=== PATIENT | female | born 2000 | race Hispanic/Latino ===

== ENCOUNTER 2022-05-07 10:11 | Emergency (ER) | payer OTHER ==
--- OUTSIDE RECORDS SUMMARY | 2022-05-07 10:14 | XMS REPORT | Continuity of Care Document ---
:2000 Author Organization [facility] t Address [address] [place] [address] Care Team Providers Name Role Phone Sigrid Lynn Primary Care Physician Sigrid GARZA Attending Clinician Unavailable Sigrid Lynn Attending Clinician Visit, Nurse Attending Clinician Unavailable Payers Payer Name Policy Type Policy Number Effective Date Expiration Date S henny [place] [employer] [id number] 2022 HEALTH 00:00:00 [place] [id number] 2022 2022 00:00:00 00:00:00 Problems Condition Condition Condition Status Onset Resolution Last Treating Co mments Source Name Details Category Date Date Treatment Clinician Date Supervisio Supervisio Disease Active U nivers n of high n of high 6-24 ity of risk risk 00:00: [place] 00 Medi edilia in first in first Branch trimester trimester Primigravi Primigravi Disease Active U nivers da in da in 6-24 ity of first first 00:00: [place] trimester trimester 00 Medi edilia Branch Cough Cough Disease Active Univers 6-24 ity of 00:00: [place] 00 Medical Branch BMI BMI Disease Active Univers 25.0-25.9, 25.0-25.9, 6-24 it y of adult adult 00:00: [address] Allergies, Adverse Reactions, Alerts Allergy Allergy Status Severity Reaction(s) Onset Inactive Treating Comm ents Source Name Type Date Date Clinician NO KNOWN Drug Active Univers ALLERGIE Class ity of S [facility] Social History Social Habit Start Date Stop Date Quantity Comments Source ASSERTION 2022-03-08 [facility] 00:00:00 [facility] Exposure to 2022-04-24 2022-05-04 Not sure [facility]-CoV-2 00:00:00 09:05:00 [facility]ly [facility] (event) [place] Tobacco use and 2022-05-04 2022-05-04 Smokeless tobacco Un iversity of exposure 00:00:00 00:00:00 non-user [facility] Alcohol intake 2022-05-04 2022-05-04 Ex-drinker [facility] 00:00:00 00:00:00 (finding) [facility] Sex Assigned At [birth year] Universit y of 00:00:00 00:00:00 [facility] Smoking Status Start Date Stop Date Source Never smoked tobacco [facility] Medications Ordered Filled Start Stop Current Ordering Indication Dosage Frequency Signature Comments Components Source Medication Medication Date Date Medication? Clinician (SIG) Name Name Yes [id number] 1{packe Take 1 Univers vit 7-21 t} Packet by ity of 33-iron[place]fol [place]-dha 00 the Medical (SELECT-OB morning. Branc h + DHA) 29 mg iron-1 mg -250 mg combo pack Blood-Gluco Yes [id number] Use as Univers se Meter 6-30 directed ity of (FREESTYLE 00:00: [place] FREEDOM 00 Medical LITE) Kit Branch blood sugar Yes [id number] Use as Univers diagnostic 6-30 directed ity o f (FREESTYLE 00:00: [place] LITE 00 Medical STRIPS) Branch strip lancets 17 Yes [id number] Use as U nivers gauge Misc 6-30 directed ity o f 00:00: [place] 00 [facility] Branch Blood-Gluco Yes [id number] Use as Univers se Meter 6-30 directed ity of (FREESTYLE 00:00: [place] FREEDOM 00 Medical LITE) Kit Branch blood sugar Yes [id number] Use as Univers diagnostic 6-30 directed ity o f (FREESTYLE 00:00: [place] LITE 00 Medical STRIPS) Branch strip lancets 17 0 Yes [id number] Use as U nivers gauge Misc 6-30 directed ity o f 00:00: [place] 00 Medical Branch Blood-Gluco Yes [id number] Use as Univers se Meter 6-30 directed ity of (FREESTYLE 00:00: [place] FREEDOM 00 Medical LITE) Kit Branch blood sugar Yes [id number] Use as Univers diagnostic 6-30 directed ity o f (FREESTYLE 00:00: [place] LITE 00 Medical STRIPS) Branch strip lancets 17 Yes [id number] Use as U nivers gauge Misc 6-30 directed ity o f 00:00: [place] 00 Medical [place] Vital Signs Vital Name Observation Time Observation Value Comments Source Systolic blood 2022-05-04 14:05:00 113 mm[Hg] [facility]iver [email or web address] Diastolic blood 2022-05-04 14:05:00 60 mm[Hg] Unive rsity of [facility] [[email or web address] Heart rate 2022-05-04 14:05:00 59 /min [facility] Body temperature 2022-05-04 14:05:00 36.28 [facility] Respiratory rate 2022-05-04 14:05:00 18 /[facility] Body height 2022-05-04 14:05:00 154.9 cm [facility] Body weight 2022-05-04 14:05:00 55.537 kg [facility] BMI 2022-05-04 14:05:00 23.13 kg/m2 [facility] Systolic blood 2022-04-19 14:39:00 111 mm[Hg] Univer sity of [email or web address] Diastolic blood 2022-04-19 14:39:00 69 mm[Hg] Unive rsity of [email or web address] Heart rate 2022-04-19 14:39:00 59 /min [facility] Body temperature 2022-04-19 14:39:00 36.89 [facility] Respiratory rate 2022-04-19 14:39:00 18 /min [facility] Body weight 2022-04-19 14:39:00 [facility]74 [facility] Procedures Procedure Date / Time Performed Performing Clinician Sourc e POCT URINALYSIS 2022-05-04 14:06:00 Sae Garza [facility] Encounters Start End Encounter Admission Attending Care Care Encounter Source Date/Time Date/Time Type Type Clinicians Facility Department ID 2022-05-17 2022-05-17 Outpatient Sigrid GARZA [facility] [id number] Univers 14:30:00 14:30:00 SAE [id number] nathan o [facility] 2022-05-17 2022-05-17 Outpatient Sigrid GARZA [facility] [id number] Univers 14:30:00 14:30:00 SAE sweeney [facility] 2022-05-05 2022-05-05 Outpatient Sigrid GARZA [facility] [id number] Univers 10:30:00 10:30:00 SAE sweeney [facility] 2022-05-04 2022-05-04 Outpatient Sigrid GARZA [facility] [id number] Univers 09:00:00 09:20:09 SAE sweeney [facility] 2022-05-04 2022-05-04 [id number] Univers 09:00:00 09:20:09 Sae Matta RECORD LABEL INTERN [id number] ity of Visit REGIONAL [id number] Robb as MATERNAL [id number] [facility] [address] [place] [address] 2022-05-04 2022-05-04 Outpatient Sigrid GARZA [facility] [id number] Univers 09:00:00 09:00:00 SAE [id number] nathan o [facility] 2022-04-19 2022-04-19 Nurse Visit, [facility]-Rmchp Nurse [facility] [id number] Univers 09:30:00 10:10:53 Visit Sae Garza RECORD LABEL INTERN [id number] ity of REGIONAL [id number] Robb as MATERNAL [id number] [facility] & [address] 2022-04-19 2022-04-19 Outpatient R JUDY [facility] [id number] Univers 09:30:00 09:30:00 SIMONASHLEY nathan [facility] 2022-04-19 2022-04-19 Outpatient R [facility] [id number] Univers 09:30:00 09:30:00 [id number] 2022-04-13 2022-04-13 [facility] [id number] Univers 00:00:00 00:00:00 Sae Matta RECORD LABEL INTERN [id number] [place] [id number] Robb as MATERNAL [id number] [facility] & [address] 2022-04-12 2022-04-12 [facility] [id number] Univers 08:00:00 08:40:38 SAE nathan [facility] 2022-04-07 2022-04-07 [facility] [id number] Univers 08:45:00 10:24:34 LORNAASHLEY [facility] Results Test Description Test Time Test Comments Results Result Comments Source POCT URINALYSIS W SPECIFIC GRAVITY 2022-05-04 14:06:00 Test Item Value Reference Range Interpretation Comme nts POCT U SP GRAV (test code = 3255) . 1.005-1.025 POCT PH U (test code = 3254) . 5-8 POCT U LEUK EST (test code = 3263) . Negative - Negative POCT U NIT (test code = 3262) . Negative - Negative POCT U PROT (test code = 3259) Trace Negative - Negative POCT U GLU (test code = 3256) Neg Negative - Negative POCT U KETONE (test code = 3258) . Negative - Negative POCT U UROBILI (test code = 3260) . 0.2-1 POCT U BILI (test code = 3261) . Negative - Negative POCT U BLD (test code = 3257) . Negative - Negative POCT U COLOR (test code = 3266) . POCT U APPEAR (test code = 3267) . [facility]
[2022-05-07 11:16] LABS: Hematocrit 39.8 % (36.0-45.0); Lymphocytes % 20.9 % (15.3-44.8); MCV 78.6 fL (80-100); MPV 10.9 fL (7.6-11.3); RBC Red Blood Cell Count 5.06 M/uL (3.86-4.86)
[2022-05-07 11:21] LABS: Urine Blood 3+ (Negative); Urine Glucose Negative (Negative); Urine Protein Negative (Negative); Urine Specific Gravity >=1.030 (1.005-1.030)
[2022-05-07 11:39] LABS: Urine Bacteria <20 /HPF (<20); Urine RBC <5 /HPF (None Seen)
[2022-05-07 11:40] LABS: Urine Mucus 2+ /HPF (None Seen)
--- NOTE | 2022-05-07 12:54 | RAD REPORT ---
EXAM DESCRIPTION: US - OB Limited - 05/07/2022 12:39 pm CLINICAL HISTORY: Spotting COMPARISON: None FINDINGS: Single viable IUP with positive heart tones. The mean sac diameter is 6.4 cm. The cr own-rump length measures 3.5 cm. The yolk sac measures 4 millimeters. heart rate measures 173 beats/minute. The uterus measures 10.4 x 6.3 x 7.9 cm with volume of 269 cc. Neither ovary was visual ized. Trace pelvic free fluid. IMPRESSION: Single viable IUP with positive heart tones measuring 10 weeks 0 day with VILMA of 0 12/03/2022.
--- NOTE | 2022-05-07 13:15 | ER ---
Nurse's Notes [facility] Name: Yolie Perry Age: 22 yrs Sex: Female : 2000 Arrival Date: 05/07/2022 Time: 10:14 Bed 30 Private MD: Diagnosis: Vaginal bleeding in first trimester of Presentation: 05/07 10:36 Chief complaint: Patient states: she was bleeding this morning. at first it was just ap3 pink when she wiped, and then she was seeing dark red blood on her panties. patient denies any abdominal pain or n/v/d. Coronavirus screen: At this time, the client does not indicate any symptoms associated with coronavirus-19. Ebola Screen: No symptoms or risks identified at this time. Initial Sepsis Screen: Does the patient meet any 2 criteria? No. Patient's initial sepsis screen is negative. Does the patient have a suspected source of infection? No. Patient's initial sepsis screen is negative. Risk Assessment: Do you want to hurt yourself or someone else?. Onset of symptoms was May 07, 2022. 10:36 Method Of Arrival: Ambulatory ap3 10:36 Acuity: YARY 3 ap3 Triage Assessment: 10:39 General: Appears in no apparent distress. Behavior is calm, cooperative. Pain: Denies ap3 pain. Neuro: Level of Consciousness is awake, alert, obeys commands, Oriented to person, place, time, situation, Gait is steady, Speech is normal. Cardiovascular: Patient's skin is warm and dry. Respiratory: Airway is patent Respiratory effort is even, unlabored. : Reports vaginal bleeding that is. 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 - Social history:: Smoking status: Patient denies any tobacco usage or history of. Screenin:39 Abuse screen: Denies threats or abuse. Nutritional screening: No deficits noted. ap3 Tuberculosis screening: No symptoms or risk factors identified. 11:12 Fall Risk No fall in past 12 months (0 pts). No secondary diagnosis (0 pts). IV access em6 (20 points). Ambulatory Aid- None/Bed Rest/Nurse Assist (0 pts). Gait- Normal/Bed Rest/Wheelchair (0 pts) Mental Status- Oriented to own ability (0 pts). Total Augustine Fall Scale indicates No Risk (0-24 pts). Assessment: 11:08 General: Appears in no apparent distress. comfortable, Behavior is calm, cooperative, em6 appropriate for age. Pain: Denies pain. Neuro: Cabrales Agitation-Sedation Scale (RASS): 0 - Alert and Calm Level of Consciousness is awake, alert, obeys commands, Oriented to person, place, time, situation. Cardiovascular: Heart tones present Capillary refill < 3 seconds. Respiratory: Airway is patent Respiratory effort is even, unlabored, Respiratory pattern is regular, symmetrical, Breath sounds are clear bilaterally. GI: No signs and/or symptoms were reported involving the gastrointestinal system. : Reports vaginal bleeding that is spotty. EENT: No signs and/or symptoms were reported regarding the EENT system. Derm: No signs and/or symptoms reported regarding the dermatologic system. Musculoskeletal: No signs and/or symptoms reported regarding the musculoskeletal system. 12:27 Reassessment: Patient appears in no apparent distress at this time. No changes from em6 previously documented assessment. Patient and/or family updated on plan of care and expected duration. Pain level reassessed. Patient denies pain at this time. Vital Signs: 10:36 BP 121 / 69; Pulse 58; Resp 18; Temp 99.0; Pulse Ox 100% ; Weight 54.43 kg; Height 5 ap3 ft. 0 in. (152.40 cm); 12:40 BP 127 / 67; Pulse 54; Resp 14; Temp 98.3; Pulse Ox 100% on R/A; Pain 0/10; em6 10:36 Body Mass Index 23.44 (54.43 kg, 152.40 cm) ap3 ED Course: 10:14 Patient arrived in ED. as 10:18 Radha Mckeon is Attending Physician. sd2 10:38 Triage completed. ap3 10:40 Arm band placed on left wrist. ap3 11:05 Kyree Ariza, APURVA is Primary Nurse. jd3 11:06 Inserted saline lock: 20 gauge in left antecubital area, using aseptic technique. Blood em6 collected. 11:13 Patient has correct armband on for positive identification. Bed in low position. Call em6 light in reach. Side rails up X 1. Adult w/ patient. Pulse ox on. NIBP on. Warm blanket given. 12:40 OB Limited In Process Unspecified. EDMS 13:28 No provider procedures requiring assistance completed. IV discontinued, intact, em6 bleeding controlled, No redness/swelling at site. Pressure dressing applied. Administered Medications: No medications were administered Medication: 11:14 VIS not applicable for this client. em6 Outcome: 13:14 Discharge ordered by . [email or web address] 13:27 Discharged to home ambulatory, with significant other. em6 13:27 Condition: stable 13:27 Discharge instructions given to patient, Instructed on discharge instructions, follow up and referral plans. Demonstrated understanding of instructions, follow-up care. 13:29 Patient left the ED. em6 Signatures: Dispatcher [employer] Luba Hewitt Jonathon, RN RN jd3 Natacha Humphreys RN RN ap3 Radha Mckeon MD MD sd2 Lulu Leonard RN RN em6
--- NOTE | 2022-05-07 13:15 | EDPHYS ---
Physician Documentation [facility] Name: Yolie Perry Age: 22 yrs Sex: Female : 2000 Arrival Date: 05/07/2022 Time: 10:14 Bed 30 Private MD: ED Physician Radha Mckeon HPI: 05/07 13:07 This 22 yrs old Female presents to ER via Ambulatory with complaints of sd2 Vaginal Bleeding, + Preg <12wks. 13:07 22 yo F at approximately 10 weeks gestation presents with CC of vaginal bleeding. sd2 Reports bleeding started today with bleeding present slightly on underwear as well. No clots or tissue passage. Denies abdominal pain or significant vomiting. Has not had an ultrasound or seen an OBGYN yet.. 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 - Social history:: Smoking status: Patient denies any tobacco usage or history of. ROS: 13:07 Constitutional: Negative for fever, chills, and weight loss, Cardiovascular: Negative sd2 for chest pain, palpitations, and edema, Respiratory: Negative for shortness of breath, cough, wheezing. Abdomen/GI: Negative for abdominal pain, nausea, vomiting, diarrhea. : Negative for dysuria, urinary frequency, hesitancy, urgency and hematuria. Positive for vaginal bleeding. MS/Extremity: Negative for injury and deformity, Skin: Negative for injury, rash, and discoloration, Neuro: Negative for headache, numbness and tingling. Hematologic/Lymphatic: Negative for swollen nodes, abnormal bleeding, and unusual bruising. Exam: 13:07 Constitutional: This is a well developed, well nourished patient who is awake, alert, sd2 and in no acute distress. Head/Face: Normocephalic, atraumatic. Chest/axilla: Normal chest wall appearance and motion. Nontender with no deformity. Cardiovascular: Regular rate and rhythm with a normal S1 and S2. No gallops, murmurs, or rubs. 2+ distal pulses. Respiratory: Lungs have equal breath sounds bilaterally, clear to auscultation and percussion. No rales, rhonchi or wheezes noted. No increased work of breathing, no retractions or nasal flaring. Abdomen/GI: Soft, non-tender, with normal bowel sounds. No guarding or rebound. No evidence of tenderness throughout. Skin: Warm, dry with normal turgor. Normal color with no rashes, no lesions, and no evidence of cellulitis. MS/ Extremity: Pulses equal, no cyanosis. Neurovascular intact. Full, normal range of motion. Ambulatory without difficulty. Psych: Awake, alert, with orientation to person, place and time. Behavior, mood, and affect are within normal limits. Vital Signs: 10:36 BP 121 / 69; Pulse 58; Resp 18; Temp 99.0; Pulse Ox 100% ; Weight 54.43 kg; Height 5 ap3 ft. 0 in. (152.40 cm); 12:40 BP 127 / 67; Pulse 54; Resp 14; Temp 98.3; Pulse Ox 100% on R/A; Pain 0/10; em6 10:36 Body Mass Index 23.44 (54.43 kg, 152.40 cm) ap3 MDM: 10:39 Patient medically screened. sd2 13:07 Differential diagnosis: STD, ectopic , UTI among others. Data reviewed: vital sd2 signs, nurses notes, lab test result(s), radiologic studies. Counseling: I had a detailed discussion with the patient and/or guardian regarding: the historical points, exam findings, and any diagnostic results supporting the discharge/admit diagnosis, lab results, radiology results, the need for outpatient follow up, to return to the emergency department if symptoms worsen or persist or if there are any questions or concerns that arise at home. Medical screen evaluation completed. EMTALA emergency medical condition absent. ED course: Labs and imaging reviewed. HCG elevated appropriately for dates. US with viable IUP with normal FHTs. UA without infection. Pt advised of results and need for outpatient follow up with OBGYN. Verbalizes understanding of discharge plan and strict return precautions.. 05/07 10:41 Order name: CBC with Diff; Complete Time: 12:06 sd2 05/07 10:41 Order name: Abo/rh Typing; Complete Time: 12:06 sd2 07/24 10:41 Order name: HCG-Quantitative; Complete Time: 12:06 sd2 05/07 10:41 Order name: Urine Microscopic Only; Complete Time: 12:06 sd2 05/07 11:21 Order name: Urine Dipstick-Ancillary; Complete Time: 12:06 EDMS 05/07 10:41 Order name: Urine Dipstick-Ancillary (obtain specimen); Complete Time: 11:21 sd2 05/07 12:40 Order name: OB Limited; Complete Time: 12:58 EDMS Administered Medications: No medications were administered Disposition Summary: 05/07/22 13:14 Discharge Ordered Location: Home sd2 Problem: new sd2 Symptoms: have improved sd2 Condition: Stable sd2 Diagnosis - Vaginal bleeding in first trimester of sd2 Followup: sd2 - With: Private Physician - When: 2 - 3 days - Reason: Recheck today's complaints, Continuance of care, Re-evaluation by your physician Followup: sd2 - With: Emergency Department - When: As needed - Reason: Discharge Instructions: - Discharge Summary Sheet sd2 - Vaginal Bleeding During , First Trimester sd2 Forms: - Medication Reconciliation Form sd2 - Thank You Letter sd2 - Antibiotic Education sd2 - Prescription Opioid Use sd2 Signatures: Dispatcher [employer] EDMS Natacha Humphreys RN RN ap3 Radha Mckeon MD MD sd2 Corrections: (The following items were deleted from the chart) 12:40 10:41 1st Trimest Single 1st Fetus+US.RAD.BRZ ordered. EDMS EDMS
[2022-05-07 13:48] VITALS: BP 127/67; TEMP 98.3; O2SAT 100
== END 2022-05-07 13:29 | disposition home or self-care (01) ==
LOC: ER 10:11
DX: O46.91 Antepartum hemorrhage, unspecified, first trimester (principal); Z3A.10 10 weeks gestation of pregnancy
CPT/HCPCS: 36415; 76815; 81003; 81015; 84702; 85025; 86900; 86901; 99284

== ENCOUNTER 2025-01-02 18:57 | Emergency (ER) | payer OTHER, SELFPAY ==
[2025-01-02] MEDS ORDERED: NA CHLORIDE 0.9% 1,000 ML ONE (21:31)
[2025-01-02] MEDS ORDERED: ONDANSETRON 4 MG/2 ML VIAL ONE (21:31)
[2025-01-02 21:35] LABS: Specific Gravity > 1.030 (1.005-1.030)
[2025-01-02 21:36] LABS: Absolute Lymphocytes (CBC) 0.5 K/uL (0.7-4.9); Absolute Monocytes 0.5 K/uL (0.1-1.3); Absolute Neutrophil 12.9 K/uL (1.8-8.0); Basophils % 0.1 % (0-1.3); Hematocrit 46.6 % (36.0-45.0); Hemoglobin 16.1 g/dL (12.0-15.0); Lymphocytes % 3.3 % (15.3-44.8); MCH 28.3 pg (27.0-35.0); MCHC 34.6 g/dL (32.0-36.0); MCV 81.8 fL (80-100); MPV 10.2 fL (7.6-11.3); Monocytes % 3.6 % (3.3-12.3); Nucleated Red Blood Cells % 0.1 % (0-0); Platelets 157 thou/uL (152-406); Red Cell Distribution Width 13.3 % (12.1-15.2); Specific Gravity > 1.030 (1.005-1.030); Urine Bacteria <20 /HPF (<20); Urine Bilirubin NEGATIVE (Negative); Urine Blood 3+ (OVER) (Negative); Urine Clarity Extremely Turbid (Clear); Urine Color Light-Orange (Yellow); Urine Crystals Unidentified Few /HPF (None Seen); Urine Culture Reflex Order REFLEXED; Urine Glucose NEGATIVE (Negative); Urine Ketones 4+ (Over) (Negative); Urine Microscopic Reflex YN ORDER UMIC; Urine Mucus 2+ /HPF (None Seen); Urine Nitrite NEGATIVE (Negative); Urine Protein 2+ (Negative); Urine RBC >50 /HPF (None Seen); Urine Urobilinogen Normal (Normal); Urine WBC >50 /HPF (<5); Urine WBC Clump Few /HPF (None Seen); Urine Yeast (Budding) Occasional /HPF (None Seen); Urine pH 5.5 (5.0-7.0)
[2025-01-02 21:53] LABS: Albumin 4.4 g/dL (3.4-5.0); Albumin/Globulin Ratio 1.1 (1.1-1.8); Anion Gap 10.3 mEq/L (5.0-15.0); Bilirubin Total 0.9 mg/dL (0.2-1.0); Potassium 3.3 mEq/L (3.5-5.1); Protein, Total 8.4 g/dL (6.4-8.2)
--- NOTE | 2025-01-02 23:05 | EDPHYS ---
Physician Documentation [facility] Name: Yolie Perry Age: 24 yrs Sex: Female : 2000 Arrival Date: 01/02/2025 Time: 18:57 Bed 11 Private MD: ED Physician Ashley Muro HPI: 01/02 22:59 This 24 yrs old Female presents to ER via Ambulatory with complaints of kb Vomiting. 22:59 Patient is a 24-year-old female who presents for nausea and vomiting that started at 10 kb AM. States her daughter had similar symptoms yesterday and is doing better today. Denies diarrhea, fever. Reports abdominal soreness from vomiting.. 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 - Infectious Disease History:: Denies. - Social history:: Smoking status: Patient denies any tobacco usage or history of. ROS: 22:59 Constitutional: As per HPI kb Exam: 22:59 Constitutional: This is a well developed, well nourished patient who is awake, alert, kb and in no acute distress. Head/Face: Normocephalic, atraumatic. ENT: Moist Mucous membranes Cardiovascular: Regular rate Respiratory: Respirations even and unlabored. No increased work of breathing. Talking in full sentences Abdomen/GI: Soft, non-tender. No distention Skin: Warm, dry with normal turgor. Normal color. MS/ Extremity: Pulses equal, no cyanosis. Neurovascular intact. Full, normal range of motion. Neuro: Awake and alert, GCS 15, oriented to person, place, time, and situation. Vital Signs: 21:10 BP 127 / 74; Pulse 74; Resp 18; Temp 98.4; Pulse Ox 100% ; Weight 63.5 kg; Height 5 ft. cp4 1 in. ; Pain 0/10; 23:27 BP 105 / 59; Pulse 74; Resp 18; Pulse Ox 99% ; cp4 21:10 Body Mass Index 26.45 (63.50 kg, 154.94 cm) cp4 21:10 Pain Scale: Adult cp4 MDM: 19:11 Medical Screening Exam initiated kb 22:59 Differential diagnosis: Nonspecific abd pain, gastritis, viral gastroenteritis. Data kb reviewed: vital signs, nurses notes. I considered the following discharge prescriptions or medication management in the emergency department I discussed and recommended Over The Counter medications, Antibiotics: At this time antibiotics are not recommended. Test considered but Not performed: CT: CT scan considered but patient has no abdominal tenderness.. Counseling: I had a detailed discussion with the patient and/or guardian regarding the historical points, exam findings, and any diagnostic results supporting the discharge/admit diagnosis, lab results, the need for outpatient follow up, a family practitioner, to return to the emergency department if symptoms worsen or persist or if there are any questions or concerns that arise at home. 23:04 ED course: Pt is tolerating po intake and states she is feeling better. Educated on kb return precautions and increasing fluids. . 01/02 19:23 Order name: CBC with Diff; Complete Time: 21:37 kb 01/02 19:23 Order name: CMP; Complete Time: 21:54 kb 01/02 19:23 Order name: Lipase; Complete Time: 21:54 kb 01/02 19:23 Order name: Test, Urine; Complete Time: 21:35 kb 01/02 19:23 Order name: Urinalysis w/ reflexes; Complete Time: 21:42 kb 01/02 21:42 Order name: Urine Culture EDVA 01/02 19:23 Order name: IV Saline Lock; Complete Time: 21:29 kb 01/02 19:23 Order name: Labs collected and sent; Complete Time: 21:29 kb 01/02 22:44 Order name: PO challenge; Complete Time: 23:14 kb Administered Medications: 21:36 Drug: Ondansetron IVP 4 mg IVP once; over 2 minutes Route: IVP; Site: right antecubital;cp4 23:29 Follow up: Response: No adverse reaction cp4 21:36 Drug: NS 0.9% IV 1000 ml IV at 1 bolus Per protocol; to be given as a bolus over 60 cp4 minutes Route: IV; Rate: 1 bolus; Site: right antecubital; 23:29 Follow up: Response: No adverse reaction; IV Status: Completed infusion cp4 23:14 Drug: Macrobid PO 100 mg PO once; administer with food Route: PO; cp4 23:29 Follow up: Response: No adverse reaction cp4 Disposition Summary: 01/02/25 23:04 Discharge Ordered Notes: Location: Home kb Condition: Stable kb Diagnosis - Nausea with vomiting, unspecified kb - UTI/ Urinary tract infection, site not specified kb Followup: kb - With: Emergency Department - When: As needed - Reason: Worsening of condition Followup: kb - With: Private Physician - When: 2 - 3 days - Reason: Recheck today's complaints, Continuance of care, Re-evaluation by your physician Discharge Instructions: - Discharge Summary Sheet kb - Nausea and Vomiting, Adult, [id number] kb - Urinary Tract Infection, Adult, [id number] kb Forms: - Medication Reconciliation Form kb - Antibiotic Education kb - Prescription Opioid Use kb - Patient Portal Instructions kb - Leadership Thank You Letter kb Prescriptions: - ondansetron 4 mg Oral Tablet,disintegrating - take 1 tablet ORAL route every 6 hours As needed; 12 tablet; Refills: 0, kb Product Selection Permitted - Macrobid 100 mg Oral Capsule - take 1 capsule ORAL route every 12 hours for 10 days; 20 capsule; Refills: 0, kb Product Selection Permitted Signatures: Dispatcher [employer] EDAnn Marie Sosa, JAVASCRIPT UI DEVELOPER-C JAVASCRIPT UI DEVELOPER-Ramona Montes RN RN iw Potter, Christina cp4 Corrections: (The following items were deleted from the chart) 19:23 19:23 CBC+H.LAB.BRZ ordered. EDMS EDMS 19:23 19:23 COMPREHENSIVE METABOLIC PANEL+C.LAB.BRZ ordered. EDMS EDMS 19:23 19:23 LIPASE+C.LAB.BRZ ordered. EDMS EDMS 19:23 19:23 Test, Urine+UC.LAB.BRZ ordered. EDMS EDMS 19:23 19:23 Urinalysis+U.LAB.BRZ ordered. EDMS EDMS
--- NOTE | 2025-01-02 23:05 | ER ---
Nurse's Notes [facility] Name: Yolie Perry Age: 24 yrs Sex: Female : 2000 Arrival Date: 01/02/2025 Time: 18:57 Bed 11 Private MD: Diagnosis: Nausea with vomiting, unspecified;UTI/ Urinary tract infection, site not specified Presentation: 01/02 20:13 Chief complaint: Patient states: vomiting since 10 am, abd soreness. Coronavirus iw screen: Client presents with at least one sign or symptom that may indicate coronavirus-19. Ebola Screen: No symptoms or risks identified at this time. Initial Sepsis Screen: Does the patient meet any 2 criteria? No. Patient's initial sepsis screen is negative. Does the patient have a suspected source of infection? No. Patient's initial sepsis screen is negative. Risk Assessment: Do you want to hurt yourself or someone else? Patient reports no desire to harm self or others. Onset of symptoms was January 02, 2025. 20:13 Method Of Arrival: Ambulatory iw 20:13 Acuity: YARY 3 iw Triage Assessment: 21:10 General: Appears in no apparent distress. uncomfortable, Behavior is calm, cooperative, cp4 appropriate for age. Pain: Denies pain. EENT: No signs and/or symptoms were reported regarding the EENT system. Neuro: Level of Consciousness is awake, alert, obeys commands, Oriented to person, place, time, situation. Cardiovascular: Patient's skin is warm and dry. Respiratory: Airway is patent Respiratory effort is even, unlabored. GI: Reports nausea, vomiting. : No signs and/or symptoms were reported regarding the genitourinary system. Derm: No signs and/or symptoms reported regarding the dermatologic system. Musculoskeletal: No signs and/or symptoms reported regarding the musculoskeletal system. MOUNTAIN GUIDE: 21:10 Not cp4 Historical: - Allergies: 20:13 No Known Allergies; iw - Home Meds: 20:13 None [Active]; iw - PMHx: 20:13 None; iw - PSHx: 20:13 None; iw - Immunization history:: Adult Immunizations up to date. - Infectious Disease History:: Denies. - Social history:: Smoking status: Patient denies any tobacco usage or history of. Screenin:[facility] ED Fall Risk Assessment (Adult) History of falling in the last 3 months, cp4 including since admission No falls in past 3 months (0 pts) Confusion or Disorientation No (0 pts) Intoxicated or Sedated No (0 pts) Impaired Gait No (0 pts) Mobility Assist Device Used No (0 pt) Altered Elimination No (0 pt) Score/Fall Risk Level 0 - 2 = Low Risk Oriented to surroundings, Maintained a safe environment, Assessed \T\ reinforced patient's understanding of fall precautions, Hourly rounding (assess needs \T\ fall precautionary measures) done. Abuse screen: Denies threats or abuse. Denies injuries from another. Nutritional screening: No deficits noted. Tuberculosis screening: No symptoms or risk factors identified. Assessment: 21:12 GI: Abdomen is round non-distended, Bowel sounds present X 4 quads. Abd is soft and non cp4 tender X 4 quads. Vital Signs: 21:10 BP 127 / 74; Pulse 74; Resp 18; Temp 98.4; Pulse Ox 100% ; Weight 63.5 kg; Height 5 ft. cp4 1 in. ; Pain 0/10; 23:27 BP 105 / 59; Pulse 74; Resp 18; Pulse Ox 99% ; cp4 21:10 Body Mass Index 26.45 (63.50 kg, 154.94 cm) cp4 21:10 Pain Scale: Adult cp4 ED Course: 18:59 Patient arrived in ED. im 19:11 Ann [facility]riz [facility]C [facility] kb 19:11 Ashley Muro MD is Attending Physician. kb 20:13 Triage completed. iw 21:05 Rae Owen is Primary Nurse. cp4 21:10 Arm band placed on right wrist. Patient placed in waiting room. cp4 21:13 Bed in low position. Call light in reach. Side rails up X 1. cp4 21:13 No provider procedures requiring assistance completed. cp4 21:36 Initial lab(s) drawn, by me, sent to lab. Urine collected: clean catch specimen, tea cp4 colored, blood tinged. Inserted saline lock: 22 gauge in right antecubital area, using aseptic technique. Blood collected. Flushed with 10 mL NS. 23:27 Provided Education on: uti. cp4 23:27 intact, bleeding controlled, No redness/swelling at site. Pressure dressing applied. cp4 Administered Medications: 21:36 Drug: Ondansetron IVP 4 mg IVP once; over 2 minutes Route: IVP; Site: right antecubital;cp4 23:29 Follow up: Response: No adverse reaction cp4 21:36 Drug: NS 0.9% IV 1000 ml IV at 1 bolus Per protocol; to be given as a bolus over 60 cp4 minutes Route: IV; Rate: 1 bolus; Site: right antecubital; 23:29 Follow up: Response: No adverse reaction; IV Status: Completed infusion cp4 23:14 Drug: Macrobid PO 100 mg PO once; administer with food Route: PO; cp4 23:29 Follow up: Response: No adverse reaction cp4 Medication: 21:13 VIS not applicable for this client. cp4 Outcome: 23:04 Discharge ordered by . david 23:27 Discharged to home ambulatory, cp4 23:27 Condition: stable 23:27 Discharge instructions given to patient, family, Instructed on discharge instructions, follow up and referral plans. medication usage, Demonstrated understanding of instructions, follow-up care, medications, 23:27 Prescriptions given X 2, 23:28 Patient left the ED. cp4 Signatures: Ann Marie Ambriz, [facility]-Ramona Montes RN RN iw Mendoza, Itzel im Potter, Christina cp4
[2025-01-02] MEDS ORDERED: NITROFURAN MACRO 100 MG CAP PO ONE (23:12)
[2025-01-02 23:57] VITALS: TEMP 98.4
[2025-01-03 00:10] VITALS: BP 105/59; O2SAT 99
== END 2025-01-02 23:28 | disposition home or self-care (01) ==
LOC: ER 18:57
DX: N39.0 Urinary tract infection, site not specified (principal)
CPT/HCPCS: 36415; 80053; 81001; 81025; 83690; 85025; 87086; 87088; 96361; 96374; 99284; J2405; J7030